=== PATIENT | female | born 1990 | race Caucasian/White ===

== ENCOUNTER 2024-02-03 17:08 | Emergency (ER) | payer OTHER ==
[2024-02-03 17:39] LABS: BASOPHILS PERCENT AUTO 0.3 % (0.2-1.2); EOSINOPHILS ABSOLUTE AUTO 0.1 x10^3/uL (0.0-0.5); EOSINOPHILS PERCENT AUTO 0.7 % (0.0-4.0); HEMATOCRIT 39.3 % (33.0-47.0); HEMOGLOBIN 14.4 g/dL (12.0-16.0); IMMATURE GRAN ABSOLUTE AUTO 0.01 x10^3/uL (0.00-0.07); LYMPHOCYTES ABSOLUTE AUTO 2.1 x10^3/uL (1.0-4.8); LYMPHOCYTES PERCENT AUTO 28.6 % (25.0-50.0); MEAN CORPUSCULAR HEMOGLOBIN 31.3 pg (26.0-32.0); MEAN CORPUSCULAR HGB CONC 36.6 g/dL (32.0-36.0); MEAN CORPUSCULAR VOLUME 85.4 fL (78.0-93.0); MONOCYTES ABSOLUTE AUTO 0.4 x10^3/uL (0.0-0.8); MONOCYTES PERCENT AUTO 5.9 % (2.0-11.0); NEUTROPHILS ABSOLUTE AUTO 4.8 x10^3/uL (1.8-7.7); NEUTROPHILS PERCENT AUTO 64.4 % (50.0-80.0); PLATELET COUNT,PLT 223 x10^3/uL (130-400); WHITE BLOOD CELL COUNT,WBC 7.5 x10^3/uL (4.0-10.0)
[2024-02-03 17:47] LABS: ANION GAP 18.2 mmol/L (5-15); BLOOD UREA NITROGEN,BUN 14 mg/dL (7-18); CALCIUM 9.6 mg/dL (8.5-10.1); CARBON DIOXIDE,CO2 21 mmol/L (21-32); CHLORIDE,CL 104 mmol/L (98-107); CREATININE 0.8 mg/dL (0.55-1.02); ESTIMATED GFR 101 mL/min (>=60); GLUCOSE RANDOM 92 mg/dL (70-99); POTASSIUM,K 3.2 mmol/L (3.5-5.1); SODIUM,NA 140 mmol/L (136-145)
[2024-02-03 18:16] LABS: BILIRUBIN,URINE NEGATIVE (NEGATIVE); COLOR,URINE LIGHT YELLOW (YELLOW); GLUCOSE,URINE NEGATIVE (NEGATIVE); KETONES,URINE NEGATIVE (NEGATIVE); LEUKOCYTE ESTERASE,URINE SMALL (NEGATIVE); NITRITE,URINE NEGATIVE (NEGATIVE); OCCULT BLOOD,URINE TRACE-LYSED (NEGATIVE); PH,URINE 6.5 (5.0-8.0); PROTEIN,URINE NEGATIVE (NEGATIVE); UROBILINOGEN,URINE 0.2 EU/dL (0.2)
[2024-02-03 18:18] LABS: APPEARANCE,URINE SLIGHTLY CLOUDY (CLEAR)
[2024-02-03 18:30] LABS: BACTERIA,URINE FEW /HPF (NOT SEEN); MUCUS,URINE NOT SEEN /LPF (NOT SEEN); RBC,URINE 0-5 /HPF (NOT SEEN); SQUAMOUS EPITHELIAL CELLS,UR FEW /HPF (NOT SEEN)
== END 2024-02-03 19:30 | disposition home or self-care (01) ==
LOC: VM.ED 17:08
DX: S60.211A Contusion of right wrist, initial encounter (principal); M54.6 Pain in thoracic spine; Z79.899 Other long term (current) drug therapy; V49.40XA Driver injured in collision with unspecified motor vehicles in traffic accident, initial encounter
CPT/HCPCS: 36415; 71046; 73110-RT; 80048; 81001; 85025; 87086; 87088; 99283; 99284